=== PATIENT | male | born 1985 | race Caucasian/White ===

== ENCOUNTER 2022-09-25 07:21 | Day surgery (SDC) | payer OTHER ==
[2022-09-24 12:35] VITALS: BMI 29.5
[2022-09-25] MEDS ORDERED: fentaNYL PF 100 MCG/2 ML SYRINGE ONE (08:55)
[2022-09-25] MEDS ORDERED: Oxymetazoline HCl 0.05% (30 ML BOT) ONE ×2 (09:05→09:23)
[2022-09-25] MEDS ORDERED: EPINEPHrine 1 MG/ML AMP ONE (09:23)
[2022-09-25] MEDS ORDERED: Bacitracin Zinc Ointment 30 gm TUBE ONE (09:23)
[2022-09-25] MEDS ORDERED: Lidocaine 1% (PF) 30 ML VIAL ONE (09:23)
[2022-09-25] MEDS ORDERED: NEOSTIGMINE 3 MG/3 ML SYR 3 MG/3 ML SYRINGE ONE (10:07)
[2022-09-25] MEDS ORDERED: Ondansetron PF 4 MG/2 ML Vial ONE (10:07)
[2022-09-25] MEDS ORDERED: PROPOFOL 200 MG/20 ML VIAL ONE (10:07)
[2022-09-25] MEDS ORDERED: Glycopyrrolate 0.2 MG/ML 5 ML SYRINGE ONE (10:07)
[2022-09-25] MEDS ORDERED: Rocuronium Bromide 10 MG/ML (10ML VIAL) ONE (10:07)
[2022-09-25] MEDS ORDERED: Dexamethasone 20 MG/5 ML VIAL ONE (10:07)
[2022-09-25] MEDS ORDERED: FENTANYL 50 MCG/ML 1 ML VIAL ONE (10:58)
[2022-09-25] MEDS ORDERED: Promethazine HCl 25 MG/ML VIAL ONE (12:20)
== END 2022-09-25 13:15 | disposition home or self-care (01) ==
LOC: SDC 07:21
PROVIDERS: ATTEND Specialist
PROC: 09SL8ZZ Reposition Nasal Turbinate, Via Natural or Artificial Opening Endoscopic (ICD-10-PCS; principal; 2022-09-25)
PROC: 09SM0ZZ Reposition Nasal Septum, Open Approach (ICD-10-PCS; principal; 2022-09-25)
DX: J34.2 Deviated nasal septum (principal); J34.3 Hypertrophy of nasal turbinates; J34.89 Other specified disorders of nose and nasal sinuses; R51.9 Headache, unspecified; J01.91 Acute recurrent sinusitis, unspecified; J30.9 Allergic rhinitis, unspecified
CPT/HCPCS: J0171; J1100; J2001; J2405; J2550; J2704; J3010

== ENCOUNTER 2023-07-31 17:00 | Outpatient (CLI) | payer OTHER | END 2023-07-31 17:01 | disposition home or self-care (01) | LOC: SLEEPLAB 17:00 | PROVIDERS: ATTEND Family Medicine | DX: G47.33 Obstructive sleep apnea (adult) (pediatric) (principal); E66.9 Obesity, unspecified; R06.83 Snoring; R53.83 Other fatigue | CPT/HCPCS: 95811 ==

== ENCOUNTER 2023-09-01 11:43 | Outpatient (CLI) | payer OTHER ==
[2023-09-01 12:38] LABS: #Basophils 0.1 10x3/uL (0.0-0.2); #Eosinphils 0.4 10x3/uL (0.0-0.5); #Monocytes 0.6 10x3/uL (0.0-1.1); #Neutrophils 3.8 10x3/uL (1.5-8.4); %Basophils 0.5 % (0.0-2.0); %Eosinophils 4.5 % (0.0-6.0); %Monocytes 6.2 % (0.0-10.0); %Neutrophils 40.7 % (40.0-75.0); Hemoglobin 12.5 g/dL (13.5-17.5); Mean Corpuscular HGB CONC 33.8 g/dL (32.0-36.0); Mean Corpuscular Volume 85.8 fl (81.2-95.1); Mean Platelet Volume 9.9 fl (7.4-10.4); Platelet Count 363 10x3/uL (150-450); RBC Distribution Width 12.2 % (11.5-14.5); Red Blood Cell (RBC) Count 4.31 10x6/uL (4.32-5.72); White Blood Cell (WBC) Count 9.2 10x3/uL (3.5-10.5)
[2023-09-01 12:52] LABS: Anion Gap 13 mmol/L (10-20); BUN (Urea Nitrogen) 10 mg/dL (8.9-20.6); Calc. Creatinine Clearance 0 mL/min (70-130); Calcium 9.1 mg/dL (7.8-10.44); Carbon Dioxide 25 mmol/L (22-29); Chloride 106 mmol/L (98-107); Estimated GFR 106; Glucose 128 mg/dL (70-105); Potassium 4.1 mmol/L (3.5-5.1); Sodium 140 mmol/L (136-145)
== END 2023-09-01 11:44 | disposition home or self-care (01) ==
LOC: LABBT 11:43
PROVIDERS: ATTEND Specialist
DX: Z01.812 Encounter for preprocedural laboratory examination (principal); K42.9 Umbilical hernia without obstruction or gangrene
CPT/HCPCS: 80048; 85025

== ENCOUNTER 2023-09-11 10:23 | Day surgery (SDC) | payer OTHER ==
[2023-09-01 12:11] VITALS: BMI 29.5
[2023-09-11] MEDS ORDERED: Ketorolac Tromethamine 30 MG/ML VIAL ONE (10:51)
[2023-09-11] MEDS ORDERED: Acetaminophen 500 MG TAB ONE (10:51)
[2023-09-11] MEDS ORDERED: CEFAZOLIN 2 GM VIAL ONE (10:51)
[2023-09-11] MEDS ORDERED: Sodium Chloride 0.9% 100 ML ONE (10:52)
[2023-09-11] MEDS ORDERED: Bupivacaine PF 0.5% 30 ML VIAL ONE (13:06)
[2023-09-11] MEDS ORDERED: EPINEPHrine 1 MG/ML VIAL ONE (13:06)
[2023-09-11] MEDS ORDERED: SUGAMMADEX SODIUM 200 MG/2 ML VIAL ONE (13:19)
[2023-09-11] MEDS ORDERED: Midazolam HCl 2 mg/2 ml Vial ONE (13:23)
[2023-09-11] MEDS ORDERED: fentaNYL PF 100 MCG/2 ML SYRINGE ONE (13:27)
[2023-09-11] MEDS ORDERED: Rocuronium Bromide 10 MG/ML (10ML VIAL) ONE (13:29)
[2023-09-11] MEDS ORDERED: Lidocaine 1% PF 5 ML VIAL ONE (13:29)
[2023-09-11] MEDS ORDERED: Succinylcholine 200 MG/10 ml SYRINGE FS ONE (13:29)
[2023-09-11] MEDS ORDERED: Ondansetron PF 4 MG/2 ML Vial ONE (13:29)
[2023-09-11] MEDS ORDERED: PROPOFOL 200 MG/20 ML VIAL ONE (13:29)
[2023-09-11] MEDS ORDERED: Dexamethasone 20 MG/5 ML VIAL ONE (13:29)
[2023-09-11] MEDS ORDERED: fentaNYL 50 mcg/mL 1 mL Vial ONE (15:13)
[2023-09-11] MEDS ORDERED: HYDROcodone/Acetaminophen 5/325 mg Tablet ONE (16:10)
== END 2023-09-11 16:48 | disposition home or self-care (01) ==
LOC: SDC 10:23
PROVIDERS: ATTEND Specialist
PROC: 0WUF0JZ Supplement Abdominal Wall with Synthetic Substitute, Open Approach (ICD-10-PCS; principal; 2023-09-11)
DX: K42.9 Umbilical hernia without obstruction or gangrene (principal)
CPT/HCPCS: C1889; J0171; J1100; J1885; J2250; J2405; J2704; J3010; J3490; S0020

== ENCOUNTER 2024-01-28 08:48 | Outpatient (CLI) | payer OTHER | END 2024-01-28 08:49 | disposition home or self-care (01) | LOC: SCSRAD 08:48 | PROVIDERS: ATTEND Family Medicine | DX: M79.672 Pain in left foot (principal) ==

== ENCOUNTER 2025-06-26 09:56 | Outpatient (CLI) | payer OTHER | END 2025-06-26 09:57 | disposition home or self-care (01) | LOC: SCSMRI 09:56 | PROVIDERS: ATTEND Family Medicine | DX: S96.912A Strain of unspecified muscle and tendon at ankle and foot level, left foot, initial encounter (principal); S93.492A Sprain of other ligament of left ankle, initial encounter; M65.972 Unspecified synovitis and tenosynovitis, left ankle and foot ==

== ENCOUNTER 2025-06-29 07:52 | Outpatient (CLI) | payer OTHER | END 2025-06-29 07:53 | disposition home or self-care (01) | LOC: SCSMRI 07:52 | PROVIDERS: ATTEND Family Medicine | DX: M25.562 Pain in left knee (principal); M67.864 Other specified disorders of tendon, left knee ==